=== PATIENT | male | born 2000 | race Two or more races ===

== ENCOUNTER 2020-09-06 15:40 | Emergency (ER) | payer OTHER, SELFPAY ==
--- NOTE | 2020-09-06 15:42 | ED.EYEPROB ---
HPI - Eye Problem General Chief complaint: Eye Problems Stated complaint: eye lid swollen Time Seen by Provider: 09/06/20 15:48 Source: patient and RN notes reviewed Mode of arrival: ambulatory Limitations: no limitations History of Present Illness HPI Narrative: 20-year-old male presents concern for right upper eyelid swelling. Reports he had small amount of pain yesterday in his upper eyelid. Denies current pain. Reports swelling, tenderness to touch. Denies drainage from the eye, eye redness. Denies upper respiratory symptoms. chief complaint: other (Eyelid swelling) Related Data Allergies Allergy/AdvReac Type Severity Reaction Status Date / Time No Known Allergies Allergy Verified 09/06/20 15:55 Review of Systems Review of Systems: Narrative: CONSTITUTIONAL: Denies malaise, chills, sweats, or fever. EYES: Denies visual changes, redness, or discharge. Reports right upper eyelid swelling ENT: Denies rhinorrhea, congestion, sinus pain, otalgia or sore throat. CARDIOVASCULAR: Denies chest pain, palpitations, or edema. RESPIRATORY: Denies cough or dyspnea. SKIN: Denies rash or itching. NEUROLOGIC: Denies headache. All systems reviewed & are unremarkable except as noted in HPI and below PMFSH Comments At time of signature, agree with nursing past medical, surgical, social and family history. There is no relevant family history pertinent to the presenting complaint Exam Narrative: Exam Narrative: GENERAL: Well-appearing, well-nourished, and in no acute distress. HEAD: Normocephalic, atraumatic. EYES: PERRLA, conjunctivae clear, and EOMI. No nystagmus. Right upper eyelid swelling noted with hordeolum internal ENT: Mucous membranes moist. NECK: Supple. CHEST: No respiratory distress. Speaks in full sentences. HEART: Regular rate and rhythm. SKIN: Warm, dry, no rash. NEURO: Alert and oriented x3. PSYCH: Normal mood and affect Course Course Emergency Course: Patient is aware of diagnosis, understands and agrees to treatment plan. Anticipatory guidance given. Patient agrees to follow-up as directed and is aware of reasons to seek care at the emergency department. Portions of this record may have been created with voice recognition software Vital Signs Vital signs: Vital Signs Temperature 98.1 F 09/06/20 15:45 Pulse Rate 100 09/06/20 15:45 Respiratory Rate 18 09/06/20 15:45 Blood Pressure 117/67 09/06/20 15:45 Pulse Oximetry 98 09/06/20 15:45 Temperature 98.1 F 09/06/20 15:45 Pulse Rate 100 09/06/20 15:45 Respiratory Rate 18 09/06/20 15:45 Blood Pressure 117/67 09/06/20 15:45 Pulse Oximetry 98 09/06/20 15:45 Reviewed. MDM - Eye Problem MDM Narrative Medical decision making narrative: Consideration of the following conditions may be warranted for the presenting problem, they are not final diagnoses: Bacterial conjunctivitis, allergic conjunctivitis, viral conjunctivitis, foreign body, blepharitis, chalazion, hordeolum, corneal abrasion, preseptal cellulitis, orbital cellulitis. No evidence of proptosis, ophthalmoplegia, vision loss, pain with eye movement. Exam findings show no acute concerns or changes; patient is non-toxic appearing and is in no distress. Patient is appropriate for outpatient treatment and follow-up. Critical Care Time Critical Care Time Critical Care Time: No Discharge Plan Discharge Clinical Impression: Hordeolum eyelid Qualifiers: Hordeolum type: internum Laterality: right Eyelid: upper Qualified Code(s): H00.021 - Hordeolum internum right upper eyelid Patient Disposition: Home, Self-Care Condition: Stable Instructions: Corey (ED) Additional Instructions: Do not touch or rub your eye. Use a warm compress for 10 minutes, 4-5 times daily Use eyedrops as directed You may take Tylenol or ibuprofen for pain Follow-up with PCP or permit technician if condition is not improving in 2-3days. Go to the emergency room if you have pain be
[2020-09-06 15:45] VITALS: BP 117/67; PULSE 100; RESP 18; TEMP 36.7; O2SAT 98
== END 2020-09-06 16:05 | disposition home or self-care (01) ==
PROVIDERS: Emergency Provider Nurse Practitioner
DX: H00.021 Hordeolum internum right upper eyelid (principal)
CPT/HCPCS: 99213; G0463